=== PATIENT | male | born 1995 | race Caucasian/White ===

== ENCOUNTER 2017-10-31 20:58 | Emergency (ER) | payer BC ==
[~2017-10-31] VITALS: Ht 180.3 cm; Wt 89.7 kg
[2017-10-31] MEDS ORDERED: NORCO 7.5/321 TABLET PO (22:34)
[2017-10-31] MEDS ORDERED: VALIUM5 MG PO (22:34)
[2017-10-31] MEDS ORDERED: MOTRIN800 MG PO (22:34)
[2017-10-31 22:50] VITALS: BP 130/88
== END 2017-10-31 22:55 | disposition home or self-care (01) ==
LOC: EME 20:58
DX: S16.1XXA Strain of muscle, fascia and tendon at neck level, initial encounter (principal); M54.12 Radiculopathy, cervical region; X50.9XXA Other and unspecified overexertion or strenuous movements or postures, initial encounter; Y93.89 Activity, other specified; J45.909 Unspecified asthma, uncomplicated; Z93.3 Colostomy status; F17.200 Nicotine dependence, unspecified, uncomplicated
CPT/HCPCS: 72040; 99281; 99283